=== PATIENT | female | born 1955 | race Caucasian/White ===

== ENCOUNTER 2018-03-28 08:55 | Outpatient (CLI) | payer BC ==
--- NOTE | 2018-03-28 10:13 | ULT ---
HEPATIC DOPPLER EVALUATION [place] SCALE DOPPLER WITH COLOR FLOW IMAGING AND SPECTRAL ANALYSIS: Date: 03/28/18 INDICATION: Abnormal laboratory values. FINDINGS: The patient is status post cholecystectomy. There is increased echogenicity of the hepatic parenchyma . No discrete hepatic lesion is seen. No focal splenic lesion. There is no evidence of ascites. The i benitez common duct is normal, measuring 3.0 mm in diameter. Hepatic Doppler evaluation reveals appropriate patency and direction of flow of the hepatic and sergio l vein systems. The hepatic and splenic arteries are patent, as is splenic vein. IMPRESSION: 1. Normal hepatic Doppler evaluation. 2. Increased echogenicity of the hepatic parenchyma, which could be related to hepatic steatosis or hepatocellular disease. Correlate clinically. 3. Status post cholecystectomy. POS: TAYH
== END 2018-03-28 08:56 | disposition home or self-care (01) ==
LOC: SCSULT 08:55
PROVIDERS: ATTEND Internal Medicine Gastroenterology
DX: R94.5 Abnormal results of liver function studies (principal); R93.2 Abnormal findings on diagnostic imaging of liver and biliary tract; Z90.49 Acquired absence of other specified parts of digestive tract
CPT/HCPCS: 76705